=== PATIENT | male | born 1960 | race Caucasian/White ===

== ENCOUNTER → 2021-04-28 | Outpatient (CLI) | payer OTHER ==
[~2021-04-28] MED LIST: AMITRIPTYLINE100 MG PO; AMOX TR-K CLV1 EAC4 PO; ASPIRIN EC325 MG PO; ASPIRIN EC81 MG PO; ATORVASTATIN CA20 MG PO; BRILINTA 90 MG90 MG PO; CHANTIX0.5 MG PO; FLOMAX0.4 MG PO; FOLIC ACID 1 MG1 MG PO; GLUCOPHAGE 500500 MG PO; HYDROCHLOROTH12.5 MG PO; IMDUR ER TAB 3030 MG PO; LOPRESSOR 25 MG25 MG PO; MOBIC15 MG PO; MOBIC7.5 MG PO; NEURONTIN300 MG PO; NITROSTAT 0.40.4 MG SL; NORVASC 5 MG TAB5 MG PO; OLANZAPINE5 MG PO; OMEPRAZOLE20 M1 PO; PIOGLITAZONE/METFORM PO; PLAVIX 75 MG TA75 MG PO; PROAIR DIGIHAL90 MCG INH; QVAR REDIHALE10.6 G1 INH; ZESTRIL30 MG PO; ZOCOR40 MG PO; ZOLOFT100 MG PO
== END ==
LOC: KOH-I 14:54
DX: Z12.2 Encounter for screening for malignant neoplasm of respiratory organs (principal); R91.1 Solitary pulmonary nodule; F17.210 Nicotine dependence, cigarettes, uncomplicated
CPT/HCPCS: 71271

== ENCOUNTER → 2022-03-21 | Outpatient (CLI) | payer OTHER | LOC: CT 07:57 | DX: R91.8 Other nonspecific abnormal finding of lung field (principal); R91.1 Solitary pulmonary nodule | CPT/HCPCS: 71260; Q9967 ==

== ENCOUNTER → 2022-04-13 | Day surgery (SDC) | payer OTHER | END | disposition home or self-care (01) | LOC: OR 06:25 | DX: Z12.11 Encounter for screening for malignant neoplasm of colon (principal); K64.8 Other hemorrhoids; K64.4 Residual hemorrhoidal skin tags; I11.0 Hypertensive heart disease with heart failure; I50.9 Heart failure, unspecified; E11.9 Type 2 diabetes mellitus without complications; I25.2 Old myocardial infarction; J44.9 Chronic obstructive pulmonary disease, unspecified; E66.3 Overweight; F17.210 Nicotine dependence, cigarettes, uncomplicated; Z86.010 Personal history of colon polyps; Z68.25 Body mass index [BMI] 25.0-25.9, adult; Z79.82 Long term (current) use of aspirin; Z79.899 Other long term (current) drug therapy | CPT/HCPCS: 82962; J2704; J7040 ==